=== PATIENT | male | born 1990 | race Caucasian/White ===

== ENCOUNTER 2016-10-09 08:33 | Emergency (ER) | payer OTHER ==
[~2016-10-09] VITALS: Ht 180.3 cm; Wt 82.0 kg
[2016-10-09 08:39] VITALS: TEMP 36.7; Ht 180.3 cm; Wt 82.0 kg
[2016-10-09] MEDS ORDERED: PROPARACAINE HCL 0.5% OP SOLN 15 ML BTL ONE (08:39)
[2016-10-09] MEDS ORDERED: CIPROFLOXACIN HCL 0.3% OP SOLN 2.5 ML BTL OPR STA (09:04)
[2016-10-09] MEDS ORDERED: HYDROCODONE/ACETAMOPHEN 5/325MG TAB PO STA (09:04)
--- NOTE | 2016-10-09 09:11 | EMERGENCY ROOM VISIT NOTE ---
ED Visit Note First contact with patient: 08:50 CHIEF COMPLAINT: Right eye irritation HISTORY OF PRESENT ILLNESS: This 26-year-old male patient thinks he got something into his right eye when he was loading wood yesterday. He states that this happened at approximately 4 PM yesterday. He washed his eye out with small water. He states the eye is painful and he still feels like there is something in his eye. The patient states that he had a similar episode last week and his left eye but that eye is better. The patient does not wear contacts. The patient denies any visual changes. REVIEW OF SYSTEMS: 6 system review was performed and was negative unless stated otherwise in history of present illness. PMH: The patient is healthy; broken femur SOCIAL HISTORY: Patient lives with his . The patient admits to tobacco use and occasional alcohol use. PHYSICAL EXAM: Vital Signs: Were reviewed Reviewed Nurse's notes. GENERAL: Well -developed well-nourished 26-year-old white male appears in no acute distress. MENTAL Status: Alert and oriented 3. EYES: The pupils are round, equal, and react to light. EOMs are full. There is discharge of clear tears from the right eye which is injected. There is no foreign body visible under athe eyelid even after lid eversion. Slit lamp exam was performed on both eyes and revealed No foreign body was seen embedded in the cornea. The cornea was clear and no hyphema was seen. Fluorescein uptake was observed on the right eye with ultraviolet light with multiple small superficial scratches over the iris. EMERGENCY DEPARTMENT COURSE: The fluorescein was irrigated away. The patient was given Bridg[place] 5/325 mg 2 tablets by mouth for pain. 2 Ciloxan eyedrops are placed into the right eye. The patient was given the remainder of the bottle to use at home as directed. The patient was discharged home in stable condition with his driving. DIAGNOSIS: Right Corneal abrasion DISCHARGE INSTRUCTIONS AND TREATMENT: Ciloxan eyedrops 2 drops to the right eye every 2 hours while awake for 2 days then 2 drops into the right eye every 4 hours while awake for additional 3 days. The eye should recover in about 24 to 36 hours. Return here or see an collections representative if it is not improving in 2 days. Take Bridgton 5/325 mg 1-2 tablets every 6 hours as needed for pain. Do not drive while taking the Bridgton. Current/Historical Medications No Active Prescriptions or Reported Meds Allergies Coded Allergies: Red Dye (Unverified Allergy, Intermediate, vomiting, 10/09/16) Codeine (Unverified Allergy, Unknown, VOMIT, 10/09/16) Vital Signs Date Time Temp Pulse Resp B/P Pulse Ox O2 Delivery O2 Flow Rate FiO2 10/09/16 08:39 36.7 77 17 145/97 98 Room Air Departure Information Prescriptions No Active Prescriptions or Reported Meds Referrals No Doctor, Assigned (PCP) Patient Instructions [facility]
[2016-10-09] MEDS ORDERED: HYDR-5688 PO (09:13)
[2016-10-09 09:26] VITALS: BP 136/91; PULSE 67; O2SAT 98
== END 2016-10-09 09:27 | disposition home or self-care (01) ==
LOC: C.EDB 08:34 → C.EDA 09:27
DX: S05.01XA Injury of conjunctiva and corneal abrasion without foreign body, right eye, initial encounter (principal); X58.XXXA Exposure to other specified factors, initial encounter; Y93.89 Activity, other specified; Y99.8 Other external cause status